=== PATIENT | female | born 1990 | race Caucasian/White ===

== ENCOUNTER 2018-06-26 10:17 | Emergency (ER) | payer SELFPAY ==
[~2018-06-26] VITALS: Ht 165.1 cm; Wt 89.2 kg
[~2018-06-26 10:17] MED LIST: CEPH-443 PO
[2018-06-26 10:28] VITALS: BP 139/75; PULSE 83; RESP 18; Ht 165.1 cm; Wt 89.2 kg
[2018-06-26] MEDS ORDERED: PRED20TA PO (11:00)
[2018-06-26] MEDS ORDERED: HC30CR25 TOP (11:00)
[2018-06-26] MEDS ORDERED: CETI10CA PO (11:00)
--- NOTE | 2018-06-26 11:02 | ERD ---
ER Documentation Chief Complaint Chief Complaint GENERALIZED RASH ALL OVER BODY FOR 5 DAY WITH ITCHING HPI 27-year-old female presents with 5-day history of itchy rash present on her trunk and back as well as her bilateral wrists. She denies any cough, sore throat, vomiting, abdominal pain. She did have a fever at home few days ago but that resolved. Patient is concerned because she had cholestasis of a year ago and is wondering if it is related. She denies abdominal pain, vomiting, dark-colored urine, yellow eyes. ROS All systems reviewed and are negative except as per history of present illness. Medications Home Meds Active Scripts Prednisone* (Prednisone*) 20 Mg Tab, 40 MG PO DAILY for 4 Days, TAB Prov:EZEKIEL SHERIDAN MD 06/26/18 Cetirizine Hcl* (Zyrtec*) 10 Mg Capsule, 10 MG PO DAILY, #20 TAB.CHEW Prov:EZEKIEL SHERIDAN MD 06/26/18 Hydrocortisone* Topical (Hydrocortisone* Topical) 2.5%-28.3 Gm Cream..g., 1 APPLIC TOP BID for 7 Days, #1 TUB Prov:EZEKIEL SHERIDAN MD 06/26/18 Cephalexin* (Keflex*) 500 Mg Capsule, 500 MG PO QID for 5 Days, CAP Prov:EZEKIEL SHERIDAN MD 11/09/14 Allergies Allergies: Coded Allergies: No Known Drug Allergy (Verified Allergy, Unknown, 06/26/18) PMhx/Soc Medical and Surgical Hx: pt denies Medical Hx, pt denies Surgical Hx Hx Alcohol Use: No Hx Substance Use: No Hx Tobacco Use: No Smoking Status: Never smoker FmHx Family History: No diabetes, No coronary disease, No other Physical Exam Vitals Vital Signs Date Temp Pulse Resp B/P (MAP) Pulse Ox O2 O2 Flow FiO2 Time Delivery Rate 06/26/18 98.7 83 18 139/75 99 10:28 (96) Physical Exam Const: No acute distress Head: Atraumatic Eyes: Normal Conjunctiva ENT: Normal External Ears, Nose and Mouth. Neck: Full range of motion. No meningismus. Resp: Clear to auscultation bilaterally Cardio: Regular rate and rhythm, no murmurs Abd: Soft, non tender, non distended. Normal bowel sounds Skin: No petechiae or purpura. Small 2 to 3 mm wheal type lesions with excoriations on the bilateral wrists. Few scattered erythematous linear circular lesions on the trunk. No streaking, vesicles, induration. Back: No midline or flank tenderness Ext: No cyanosis, or edema Neur: Awake and alert Psych: Normal Mood and Affect Procedures/MDM She presents with a nonspecific dermatitis on the wrist and trunk. His clinical appearance of likely viral exanthem. She has no other signs or symptoms suggest hepatobiliary disease there is no evidence of purpura, cellulitis, anaphylaxis, life-threatening rashes. We will treat with short course of prednisone, Zyrtec, hydrocortisone, primary care follow-up and return precautions. The patient was stable with no new complaints during the ER course. Clinically, there is no current evidence to suggest meningitis, sepsis, acute abdomen, pneumonia, stroke, acute coronary syndrome, pulmonary embolism, aortic dissection or any other emergent condition appearing to require further evaluation or hospitalization. Patient counseled regarding my diagnostic impression and care plan. Prior to discharge all questions answered. Pt agrees with treatment plan and understands strict return precautions. Pt is instructed to follow up with primary care provider within 24-48 hours. Precautionary instructions provided including instructions to return to the ER if not improving or for any worsening or changing symptoms or concerns. Disclaimer: Inadvertent spelling and grammatical errors are likely due to EHR/dictation software use and do not reflect on the overall quality of patient care. Also, please note that the electronic time recorded on this note does not necessarily reflect the actual time of the patient encounter. Departure Diagnosis: Primary Impression: Rash Condition: Stable Patient Instructions: Dermatitis, Non-Specific, Viral Rash, Exanthem (Child) Additional Instructions: Suspect viral rash or allergy. Recheck for fevers, vomiting, shortness of breath, new or worsening symptoms with primary care doctor. EZEKIEL SHERIDAN MD June 26, 2018 11:02
== END 2018-06-26 11:23 | disposition home or self-care (01) ==
LOC: FTE 10:17
DX: R21 Rash and other nonspecific skin eruption (principal)
CPT/HCPCS: 99283